=== PATIENT | male | born 1960 | race American Indian/Alaskan Native ===

== ENCOUNTER 2020-02-25 13:59 | Emergency (ER) | payer MEDICARE ==
[2020-02-25 14:07] VITALS: BP 144/81
[2020-02-25] MEDS ORDERED: SODIUM CHLORIDE 0.9% 1000 ML 1,000 ML IV ONE (14:32)
[2020-02-25] MEDS ORDERED: ACETAMINOPHEN 325 MG TAB PO ONE (14:32)
[2020-02-25] MEDS ORDERED: METOCLOPRAMIDE 10 MG/2 ML INJ IV ONE (14:32)
[2020-02-25] MEDS ORDERED: dexAMETHasone 4 MG/ML VIAL IV ONE (14:32)
[2020-02-25] MEDS ORDERED: diphenhydrAMINE 50 MG/ML VIAL IV ONE (14:32)
--- NOTE | 2020-02-25 14:39 | Emergency Department Report ---
ED Headache HPI - General Chief Complaint: Headache Stated Complaint: SEVERE HEADACHE Time Seen by Provider: 02/25/20 14:23 - History of Present Illness Initial Comments: Patient is a 60-year-old male who presents emergency room with complaints of a frontal headache that began yesterday. He describes the pain as an aching. He has associated nausea and one episode of vomiting. He states that he does not usually have headaches but occasionally when he gets a mild headache he takes ibuprofen and it resolves. He states he tried to take ibuprofen last night and this morning without much relief. He denies any diarrhea, fever, sore throat, cough, abdominal pain, chest pain, shortness of breath, vision changes, numbness, weakness, speech or gait disturbance. He has a past medical history of hypertension and hyperlipidemia. He denies any allergies to medications. Allergies/Adverse Reactions: Allergies No Known Allergies Allergy (Unverified 02/25/20 14:06) Home Medications: Ambulatory Orders Butalb/Acetaminophen/Caffeine [Fioricet 50-300-40 mg CAP] 1 cap PO Q8HR PRN #10 cap 02/25/20 Ondansetron HCl [Zofran] 4 mg PO Q8HR PRN #10 tablet 02/25/20 ED Review of Systems ROS: Stated complaint: SEVERE HEADACHE Other details as noted in HPI Comment: All other systems reviewed and negative ED Past Medical Hx - Past Medical History Previous Medical History?: Yes Hx Hypertension: Yes - Social History Smoking Status: Never Smoker Substance Use Type: None - Medications Home Medications: Home Medications Medication Instructions Recorded Confirmed Last Taken Type Butalb/Acetaminophen/Caffeine 1 cap PO Q8HR PRN #10 cap 02/25/20 Unknown Rx [Fioricet 50-300-40 mg CAP] Ondansetron HCl [Zofran] 4 mg PO Q8HR PRN #10 tablet 02/25/20 Unknown Rx ED Physical Exam - General Limitations: No Limitations General appearance: alert, in no apparent distress - Head Head exam: Present: atraumatic, normocephalic - Eye Eye exam: Present: normal appearance, PERRL, EOMI - ENT ENT exam: Present: mucous membranes moist - Neck Neck exam: Present: normal inspection, full ROM. Absent: tenderness, meningismus - Respiratory Respiratory exam: Present: normal lung sounds bilaterally. Absent: respiratory distress, wheezes, rales, rhonchi, stridor, chest wall tenderness, accessory muscle use, decreased breath sounds, prolonged expiratory - Cardiovascular Cardiovascular Exam: Present: regular rate, normal rhythm, normal heart sounds. Absent: systolic murmur, diastolic murmur, rubs, gallop - Neurological Exam Neurological exam: Present: alert, oriented X3, CN II-XII intact, normal gait, other (normal finger to nose, normal heel to benjamin, 5/5 strength in the BUE/BLE, sensation intact throughout, no focal neuro deficit). Absent: motor sensory deficit - Psychiatric Psychiatric exam: Present: normal affect, normal mood - Skin Skin exam: Present: warm, dry, intact ED Course Vital Signs 02/25/20 14:06 Temperature 99 F Pulse Rate 82 Respiratory 18 Rate Blood Pressure 144/81 O2 Sat by Pulse 97 Oximetry ED Medical Decision Making - Lab Data Result diagrams: 02/25/20 15:03 02/25/20 15:03 Lab Results 02/25/20 02/25/20 Range/Units 15:03 15:03 WBC 8.2 (4.5-11.0) K/mm3 RBC 5.11 H (3.65-5.03) M/mm3 Hgb 15.5 H (11.8-15.2) gm/dl Hct 45.7 H (35.5-45.6) % MCV 90 (84-94) fl MCH 30 (28-32) pg MCHC 34 (32-34) % RDW 13.7 (13.2-15.2) % Plt Count 267 (140-440) K/mm3 Lymph % (Auto) 24.4 (13.4-35.0) % [place]undy % (Auto) 8.2 H (0.0-7.3) % Eos % (Auto) 1.6 (0.0-4.3) % Baso % (Auto) 0.6 (0.0-1.8) % Lymph # 2.0 (1.2-5.4) K/mm3 [place]undy # 0.7 (0.0-0.8) K/mm3 Eos # 0.1 (0.0-0.4) K/mm3 Baso # 0.0 (0.0-0.1) K/mm3 Seg Neutrophils % 65.2 (40.0-70.0) % Seg Neutrophils # 5.4 (1.8-7.7) K/mm3 Sodium 142 (137-145) mmol/L Potassium 3.6 (3.6-5.0) mmol/L Chloride 101.2 (98-107) mmol/L Carbon Dioxide 28 (22-30) mmol/L Anion Gap 16 mmol/L BUN 14 (9-20) mg/dL Creatinine 1.2 (0.8-1.5) mg/dL Estimated GFR > 60 ml/min BUN/Creatinine Ratio 12 % Glucose 90 (75-100) mg/dL Calcium 9.9 (8.4-10.2) mg/dL Magnesium 2.20 (1.7-2.3) mg/dL Total Bilirubin 0.40 (0.1-1.2) mg/dL AST 24 (5-40) units/L ALT 24 (7-56) units/L Alkaline Phosphatase 87 (35-129) units/L Total Creatine Kinase 278 H (55-170) units/L Total Protein 7.4 (6.3-8.2) g/dL Albumin 4.6 (3.9-5) g/dL Albumin/Globulin Ratio 1.6 % - Radiology Data Radiology results: report reviewed CT HEAD WITHOUT CONTRAST INDICATION / CLINICAL INFORMATION: headache. TECHNIQUE: All CT scans at this location are performed using CT dose reduction for ALARA by means of automated exposure control. COMPARISON: None available. FINDINGS: HEMORRHAGE: No evidence of intracranial hemorrhage or extra-axial fluid collection. EXTRA-AXIAL SPACES: Cortical sulci, sylvian fissures and basilar cisterns have an unremarkable appearance. VENTRICULAR SYSTEM: The ventricular system is of normal size and configuration. CEREBRAL PARENCHYMA: No areas of abnormal brain parenchymal attenuation are identified. There is no indication of recent infarction. MIDLINE SHIFT OR HERNIATION: There is no mass effect. CEREBELLUM / BRAINSTEM: Brainstem and cerebellum have an unremarkable appearance. INTRACRANIAL VESSELS:No abnormalities are identified on this noncontrast head CT. ORBITS: visualized portions of the orbits have an unremarkable appearance. SOFT TISSUES of HEAD: No significant abnormality. CALVARIUM: Evaluation of bone windows reveals no abnormalities. PARANASAL SINUSES / MASTOID AIR CELLS: Paranasal sinuses are free from inflammatory mucosal disease. Mastoid air cells are normally pneumatized. ADDITIONAL FINDINGS: None. IMPRESSION: 1. No abnormality on head CT without contrast. Signer Name: Brady Mancini MD Signed: 02/25/2020 3:06 PM Workstation Name: [id number] Transcribed By: Dictated By: Brady Mancini MD Electronically Authenticated By: Brady Mancini MD Signed Date/Time: 02/25/20 1506 DD/ 1503 TD/TT: - Medical Decision Making Patient is a 60-year-old male who presents emergency room with complaints of a frontal headache that began yesterday. He describes the pain as an aching. He has associated nausea and one episode of vomiting. He states that he does not usually have headaches but occasionally when he gets a mild headache he takes ibuprofen and it resolves. He states he tried to take ibuprofen last night and this morning without much relief. He denies any diarrhea, fever, sore throat, cough, abdominal pain, chest pain, shortness of breath, vision changes, numbness, weakness, speech or gait disturbance. He has a past medical history of hypertension and hyperlipidemia. He denies any allergies to medications. Vitals are stable. No abnormality on physical examination, no neurological deficits. CT head: 1. No abnormality on head CT without contrast. Labs are stable. Patient given medications and headache improved and patient was resting comfortably in exam room. Patient was able to tolerate p.o. intake. Patient given prescription for Fioricet and Zofran. Advised patient Please take medication as prescribed. Increase your fluid intake. Follow-up with your primary care doctor. Return to the emergency room for any new or worsening symptoms including but not limited to worsening headache, vision changes, numbness, weakness, difficulty with speech or walking, etc. - Differential Diagnosis Migraine, tension headache, cluster headache, sinusitis, ICH, CVA, SDH Critical care attestation.: If time is entered above; I have spent that time in minutes in the direct care of this critically ill patient, excluding procedure time. ED Disposition Clinical Impression: Headache Qualifiers: Headache type: unspecified Headache chronicity pattern: acute headache Intractability: not intractable Qualified Code(s): R51 - Headache Disposition: DC-01 TO HOME OR SELFCARE Is pt being admited?: No Does the pt Need Aspirin: No Condition: Stable Instructions: Acute Headache (ED) Additional Instructions: Please take medication as prescribed. Increase your fluid intake. Follow-up with your primary care doctor. Return to the emergency room for any new or worsening symptoms including but not limited to worsening headache, vision changes, numbness, weakness, difficulty with speech or walking, etc. Prescriptions: Butalb/Acetaminophen/Caffeine [Fioricet 50-300-40 mg CAP] 1 cap PO Q8HR PRN #10 cap PRN Reason: Headache Ondansetron HCl [Zofran] 4 mg PO Q8HR PRN #10 tablet PRN Reason: Nausea And Vomiting Referrals: PRIMARY CARE, [Primary Care Provider] - 2-3 Days Time of Disposition: 17:55 Print Language: VENEZUELAN
--- NOTE | 2020-02-25 15:10 | Cat Scan Report ---
CT HEAD WITHOUT CONTRAST INDICATION / CLINICAL INFORMATION: headache. TECHNIQUE: All CT scans at this location are performed using CT dose reduction for ALARA by means of automated e xposure control. COMPARISON: None available. FINDINGS: HEMORRHAGE: No evidence of intracranial hemorrhage or extra-axial fluid collection. EXTRA-AXIAL SPACES: Cortical sulci, sylvian fissures and basilar cisterns have an unremarkable appear ance. VENTRICULAR SYSTEM: The ventricular system is of normal size and configuration. CEREBRAL PARENCHYMA: No areas of abnormal brain parenchymal attenuation are identified. There is no i ndication of recent infarction. MIDLINE SHIFT OR HERNIATION: There is no mass effect. CEREBELLUM / BRAINSTEM: Brainstem and cerebellum have an unremarkable appearance. INTRACRANIAL VESSELS:No abnormalities are identified on this noncontrast head CT. ORBITS: visualized portions of the orbits have an unremarkable appearance. SOFT TISSUES of HEAD: No significant abnormality. CALVARIUM: Evaluation of bone windows reveals no abnormalities. PARANASAL SINUSES / MASTOID AIR CELLS: Paranasal sinuses are free from inflammatory mucosal disease. Mastoid air cells are normally pneumatized. ADDITIONAL FINDINGS: None. IMPRESSION: 1. No abnormality on head CT without contrast. Signer Name: Brady Mancini MD Signed: 02/25/2020 3:06 PM Workstation Name: [id number]
[2020-02-25 15:45] LABS: Basophils % (Auto) 0.6 % (0.0-1.8); Eosinophils # (Auto) 0.1 K/mm3 (0.0-0.4); Eosinophils % (Auto) 1.6 % (0.0-4.3); Hematocrit 45.7 % (35.5-45.6); Hemoglobin 15.5 gm/dl (11.8-15.2); Lymphocytes % (Auto) 24.4 % (13.4-35.0); Mean Corpuscular HGB Conc 34 % (32-34); Mean Corpuscular Volume 90 fl (84-94); Monocytes # (Auto) 0.7 K/mm3 (0.0-0.8); Monocytes % (Auto) 8.2 % (0.0-7.3); Platelet Count 267 K/mm3 (140-440); Red Blood Count 5.11 M/mm3 (3.65-5.03); Red Cell Distribution Width 13.7 % (13.2-15.2)
[2020-02-25 16:07] LABS: Alanine Aminotransferase 24 units/L (7-56); Albumin 4.6 g/dL (3.9-5); BUN/Creatinine Ratio 12; Blood Urea Nitrogen 14 mg/dL (9-20); Calcium 9.9 mg/dL (8.4-10.2); Hemolysis Index 18
[2020-02-25] MEDS ORDERED: KETOROLAC 30 MG/1 ML INJ IV ONE (16:45)
== END 2020-02-25 18:48 | disposition home or self-care (01) ==
LOC: ED 13:59
DX: R51 Headache (principal); R11.2 Nausea with vomiting, unspecified; I10 Essential (primary) hypertension
CPT/HCPCS: 36415; 70450; 80053; 82550; 83735; 85025; 96361; 96374; 96375; 99284; J1100; J1200; J1885; J2765; J7030

== ENCOUNTER 2021-10-08 12:21 | Emergency (ER) | payer MEDICARE ==
[2021-10-08] MEDS ORDERED: KETOROLAC 10 MG TAB PO ONE (13:25)
[2021-10-08] MEDS ORDERED: predniSONE 20 MG TAB PO ONE (13:25)
[2021-10-08] MEDS ORDERED: HYDROcodone/ACETAMINOPHEN 5-325 MG TAB PO ONE (13:25)
--- NOTE | 2021-10-08 13:31 | Emergency Department Report ---
ED Back Pain/Injury HPI - General Chief Complaint: Back Pain/Injury Stated Complaint: HIP AND BACK PAIN Source: patient Limitations: No Limitations - History of Present Illness Initial Comments: Patient is a 62-year-old male with past medical history notable chronic back pain who sees a neurosurgeon presents emergency department complaint of left- sided hip and back pain that is atraumatic. He denies having any warning symptoms of fever. He denies any numbness tingling or weakness. He denies any saddle anesthesia. Patient denies any bowel or bladder incontinence. He states he has been able to ambulate. He states that he takes gabapentin currently for pain. He also denies any pain with urination. MD Complaint: back pain - Related Data Previous Rx's Medication Instructions Recorded Last Taken Type Butalb/Acetaminophen/Caffeine 1 cap PO Q8HR PRN #10 cap 02/25/20 Unknown Rx [Fioricet 50-300-40 mg CAP] Ondansetron HCl [Zofran] 4 mg PO Q8HR PRN #10 tablet 02/25/20 Unknown Rx HYDROcodone/APAP 5-325 [[place] 1 each PO Q6HR PRN 3 Days #12 10/08/21 Unknown Rx 5/325] tablet predniSONE [Deltasone] 40 mg PO QDAY 4 Days #8 tab 10/08/21 Unknown Rx Allergies Allergy/AdvReac Type Severity Reaction Status Date / Time No Known Allergies Allergy Unverified 02/25/20 14:06 ED Review of Systems ROS: Stated complaint: HIP AND BACK PAIN Other details as noted in HPI Constitutional: denies: chills, fever Eyes: denies: eye pain ENT: denies: throat pain Respiratory: denies: cough, orthopnea Cardiovascular: denies: dyspnea on exertion Endocrine: no symptoms reported Gastrointestinal: denies: abdominal pain, nausea, vomiting Genitourinary: denies: dysuria Musculoskeletal: back pain Skin: denies: rash Neurological: denies: headache, weakness Psychiatric: denies: anxiety, depression Hematological/Lymphatic: denies: easy bleeding ED Past Medical Hx - Past Medical History Hx Hypertension: Yes - Social History Smoking Status: Never Smoker Substance Use Type: None - Medications Home Medications: Home Medications Medication Instructions Recorded Confirmed Last Taken Type Butalb/Acetaminophen/Caffeine 1 cap PO Q8HR PRN #10 cap 02/25/20 Unknown Rx [Fioricet 50-300-40 mg CAP] Ondansetron HCl [Zofran] 4 mg PO Q8HR PRN #10 tablet 02/25/20 Unknown Rx HYDROcodone/APAP 5-325 [[place] 1 each PO Q6HR PRN 3 Days #12 10/08/21 Unknown Rx 5/325] tablet predniSONE [Deltasone] 40 mg PO QDAY 4 Days #8 tab 10/08/21 Unknown Rx ED Physical Exam - General Limitations: No Limitations General appearance: alert, in no apparent distress - Head Head exam: Present: atraumatic, normocephalic - Eye Eye exam: Present: normal appearance - ENT ENT exam: Present: mucous membranes moist - Neck Neck exam: Present: normal inspection - Respiratory Respiratory exam: Present: normal lung sounds bilaterally. Absent: respiratory distress - Cardiovascular Cardiovascular Exam: Present: regular rate, normal rhythm. Absent: systolic murmur, diastolic murmur, rubs, gallop - GI/Abdominal GI/Abdominal exam: Present: soft, normal bowel sounds - Rectal Rectal exam: Present: deferred - Back Exam Back exam: Present: tenderness (l spine) - Neurological Exam Neurological exam: Present: alert, oriented X3, normal gait. Absent: motor sensory deficit - Psychiatric Psychiatric exam: Present: normal affect, normal mood - Skin Skin exam: Present: warm, dry, intact, normal color. Absent: rash ED Course Vital Signs 10/08/21 12:26 Temperature 98.4 F Pulse Rate 72 Respiratory 18 Rate Blood Pressure 135/69 [Right] O2 Sat by Pulse 98 Oximetry ED Medical Decision Making - Medical Decision Making This is a 61-year-old male here with complaint of back pain. Patient has had chronic back pain for years and sees a neurosurgeon. He denies any warning symptoms of his back pain. Given this I do not think there is any new utility in obtaining imaging on today. Patient has a normal neurological exam. Plan to be treat patient's pain and to give 3 days of pain medicine and dose of steroids patient is to follow-up with primary care as well as his neurosurgeon. Critical care attestation.: If time is entered above; I have spent that time in minutes in the direct care of this critically ill patient, excluding procedure time. ED Disposition Clinical Impression: Sciatica Disposition: HOME / SELF CARE / HOMELESS Is pt being admited?: No Does the pt Need Aspirin: No Condition: Stable Instructions: Sciatica Prescriptions: predniSONE [Deltasone] 40 mg PO QDAY 4 Days #8 tab HYDROcodone/APAP 5-325 [[place] 5/325] 1 each PO Q6HR PRN 3 Days #12 tablet PRN Reason: Pain Referrals: DELMIS VIVEROS II, MD [Staff Physician] - 3-5 Days Time of Disposition: 13:32
[2021-10-08 14:16] VITALS: BP 132/74
== END 2021-10-08 14:16 | disposition home or self-care (01) ==
LOC: ED 12:21
DX: M54.30 Sciatica, unspecified side (principal); I10 Essential (primary) hypertension
CPT/HCPCS: 99282; J7512

== ENCOUNTER 2022-04-06 15:12 | Emergency (ER) | payer MEDICARE ==
[2022-04-06 17:16] VITALS: BP 145/80
[2022-04-06] MEDS ORDERED: dexAMETHasone 20 MG/5 ML VIAL IM ONE (19:46)
[2022-04-06] MEDS ORDERED: HYDROmorphone 1 MG/1 ML INJ IM ONE (19:46)
[2022-04-06] MEDS ORDERED: ONDANSETRON 4 MG ODT TAB PO ONE (19:46)
--- NOTE | 2022-04-06 20:29 | Emergency Department Report ---
ED Back Pain/Injury HPI - General Chief Complaint: Extremity Injury, Lower Stated Complaint: BACK PAIN/VOMTING Source: patient Limitations: No Limitations - History of Present Illness Initial Comments: Patient is a 62-year-old -[place] male with a history of hypertension and chronic low back pain and sciatica presents to the ED with complaint of acute exacerbation of his chronic low back pain that radiates to the right leg persistently for the last 2 days after heavy lifting. Patient also complains of headache and nausea and vomiting. Patient states that he has not been to keep anything down including his medications due to persistent pain and nausea and vomiting. Patient denies fall, traumatic injury, dizziness, syncope, chest pain or shortness of breath, abdominal pain, diarrhea, fever, chills, cough, change in vision, bilateral lower extremity weakness, urinary or bowel incontinence and saddle paresthesia. MD Complaint: back pain (Low back pain radiating to the right leg), other (Nausea and vomiting, headache, chronic sciatica flareup) -: Sudden, days(s) (2) Similar Symptoms Previously: Yes Place: home Radiation: right leg Severity: severe Severity scale (0 -10): 7 Quality: sharp, aching Consistency: constant Improves With: none Worsens With: movement, walking Context: while lifting, turning/twisting Associated Symptoms: denies other symptoms, difficulty walking. denies: confusion, weakness, chest pain, numbness, cough, difficulty urinating, diaphoresis, incontinence, constipation, headaches, abdominal pain, nausea/vomiting, rash, seizure, shortness of breath, syncope, other - Related Data Previous Rx's Medication Instructions Recorded Last Taken Type ondansetron HCL [Zofran] 4 mg PO Q8HR PRN #10 tablet 02/25/20 Unknown Rx HYDROcodone/APAP 5-325 [[place] 1 each PO Q6HR PRN 3 Days #12 10/08/21 Unknown Rx 5/325] tablet Butalb/Acetaminophen/Caffeine 1 - 2 cap PO Q8HR PRN #10 cap 04/06/22 Unknown Rx [Fioricet 50-300-40 mg CAP] Naproxen 500 mg PO Q12H PRN #24 tab 04/06/22 Unknown Rx predniSONE [Deltasone] 60 mg PO QDAY #15 tab 04/06/22 Unknown Rx tiZANidine [Zanaflex 4mg TAB] 4 mg PO Q8H #21 tab 04/06/22 Unknown Rx traMADoL [Ultram] 50 mg PO Q6HR PRN #10 tablet 04/06/22 Unknown Rx Allergies Allergy/AdvReac Type Severity Reaction Status Date / Time No Known Allergies Allergy Unverified 02/25/20 14:06 ED Review of Systems ROS: Stated complaint: BACK PAIN/VOMTING Other details as noted in HPI Constitutional: denies: chills, fever Eyes: denies: eye pain, eye discharge, vision change ENT: denies: ear pain, throat pain Respiratory: denies: cough, shortness of breath, wheezing Cardiovascular: denies: chest pain, palpitations Endocrine: no symptoms reported Gastrointestinal: nausea, vomiting. denies: abdominal pain, diarrhea Genitourinary: denies: urgency, dysuria Musculoskeletal: back pain (Low back pain radiating to the right leg), arthralgia (Right leg pain from lower back), myalgia. denies: joint swelling Skin: denies: rash, lesions Neurological: headache. denies: weakness, paresthesias Psychiatric: denies: anxiety, depression Hematological/Lymphatic: denies: easy bleeding, easy bruising ED Past Medical Hx - Past Medical History Hx Hypertension: Yes Additional medical history: Chronic low back pain with right-sided sciatica - Social History Smoking Status: Never Smoker Substance Use Type: None - Medications Home Medications: Home Medications Medication Instructions Recorded Confirmed Last Taken Type ondansetron HCL [Zofran] 4 mg PO Q8HR PRN #10 tablet 02/25/20 Unknown Rx HYDROcodone/APAP 5-325 [[place] 1 each PO Q6HR PRN 3 Days #12 10/08/21 Unknown Rx 5/325] tablet Butalb/Acetaminophen/Caffeine 1 - 2 cap PO Q8HR PRN #10 cap 04/06/22 Unknown Rx [Fioricet 50-300-40 mg CAP] Naproxen 500 mg PO Q12H PRN #24 tab 04/06/22 Unknown Rx predniSONE [Deltasone] 60 mg PO QDAY #15 tab 04/06/22 Unknown Rx tiZANidine [Zanaflex 4mg TAB] 4 mg PO Q8H #21 tab 04/06/22 Unknown Rx traMADoL [Ultram] 50 mg PO Q6HR PRN #10 tablet 06/09/22 Unknown Rx ED Physical Exam - General Limitations: No Limitations General appearance: alert, in no apparent distress - Head Head exam: Present: atraumatic, normocephalic, normal inspection - Eye Eye exam: Present: normal appearance, PERRL, EOMI Pupils: Present: normal accommodation - ENT ENT exam: Present: normal exam, normal orophraynx, mucous membranes moist, TM's normal bilaterally, normal external ear exam - Neck Neck exam: Present: normal inspection, full ROM. Absent: tenderness - Respiratory Respiratory exam: Present: normal lung sounds bilaterally. Absent: respiratory distress, wheezes, rales, rhonchi, chest wall tenderness, accessory muscle use, decreased breath sounds, prolonged expiratory - Cardiovascular Cardiovascular Exam: Present: regular rate, normal rhythm, normal heart sounds. Absent: systolic murmur, diastolic murmur, rubs, gallop - GI/Abdominal GI/Abdominal exam: Present: soft, normal bowel sounds. Absent: tenderness, guarding, rebound, hyperactive bowel sounds, hypoactive bowel sounds, organomegaly, mass - Extremities Exam Extremities exam: Present: normal inspection, full ROM, normal capillary refill. Absent: tenderness, pedal edema, joint swelling, calf tenderness - Back Exam Back exam: Present: normal inspection, full ROM, tenderness (Palpable lumbosacral paraspinal musculoskeletal tenderness), muscle spasm, paraspinal tenderness. Absent: CVA tenderness (L), vertebral tenderness - Neurological Exam Neurological exam: Present: alert, oriented X3, CN II-XII intact, normal gait, reflexes normal - Psychiatric Psychiatric exam: Present: normal affect, normal mood - Skin Skin exam: Present: warm, dry, intact, normal color. Absent: rash ED Course Vital Signs 04/06/22 04/06/22 17:12 20:10 Temperature 98.3 F Pulse Rate 74 Respiratory 16 18 Rate Blood Pressure 145/80 O2 Sat by Pulse 96 Oximetry ED Medical Decision Making - Medical Decision Making This is a 62-year-old -[place] male with a history of hypertension and chronic low back pain and sciatica presents to the ED with complaint of acute exacerbation of his chronic low back pain that radiates to the right leg persistently for the last 2 days after heavy lifting. Patient also complains of headache and nausea and vomiting. Patient states that he has not been to keep anything down including his medications due to persistent pain and nausea and vomiting. In the ED, patient is alert and oriented x3 and is not in any distress. Patient however appears to be in pain. Patient was treated for pain in the ED and also given antiemetics. Based on the history and physical exam findings, the patient symptoms are likely due to low back pain with sciatica. On reevaluation, patient passed oral fluid challenge in the ED. Patient will discharge home on pain medications and antiemetics and advised to follow-up with his primary care physician in 3 to 5 days for reevaluation or return to the ED immediately if symptoms get worse. - Differential Diagnosis Chronic sciatica; chronic back pain; muscle spasm of back; muscle strain of Critical care attestation.: If time is entered above; I have spent that time in minutes in the direct care of this critically ill patient, excluding procedure time. ED Disposition Clinical Impression: Spasm of muscle of lower back, Strain of muscle, fascia and tendon of lower back, initial encounter, Nausea and vomiting in adult patient, Tension headache Chronic low back pain with right-sided sciatica Qualifiers: Back pain laterality: right Qualified Code(s): M54.41 - Lumbago with sciatica, right side; G89.29 - Other chronic pain Disposition: 01 HOME / SELF CARE / HOMELESS Is pt being admited?: No Does the pt Need Aspirin: No Condition: Stable Instructions: Muscle Cramps and Spasms, [id number], Muscle Strain, [id number], Lumbosacral Strain, General Headache Without Cause, Nausea and Vomiting, Adult, [id number], Sciatica, [id number], Chronic Back Pain, [id number] Additional Instructions: Your symptoms are likely due to muscle spasm and muscle strain of your low back as well as exacerbation of chronic low back pain with right-sided sciatica which is due to nerve impingement in your lower back. Therefore take medications with food, drink plenty of fluids, follow-up with your primary care physician in 3 to 5 days for reevaluation. Return to the ED immediately if symptoms get worse. Prescriptions: predniSONE [Deltasone] 60 mg PO QDAY #15 tab Butalb/Acetaminophen/Caffeine [Fioricet 50-300-40 mg CAP] 1 - 2 cap PO Q8HR PRN #10 cap PRN Reason: Headache Naproxen 500 mg PO Q12H PRN #24 tab PRN Reason: Pain , Severe (7-10) traMADoL [Ultram] 50 mg PO Q6HR PRN #10 tablet PRN Reason: Pain tiZANidine [Zanaflex 4mg TAB] 4 mg PO Q8H #21 tab Referrals: [facility] [Provider Group] - 3-5 Days Time of Disposition: 20:34 Print Language: SLOVENIAN
== END 2022-04-06 21:23 | disposition home or self-care (01) ==
LOC: ED 15:12
DX: S39.012A Strain of muscle, fascia and tendon of lower back, initial encounter (principal); G89.29 Other chronic pain; M62.830 Muscle spasm of back; M54.41 Lumbago with sciatica, right side; X58.XXXA Exposure to other specified factors, initial encounter; Y93.89 Activity, other specified; Y92.89 Other specified places as the place of occurrence of the external cause; Y99.8 Other external cause status; I10 Essential (primary) hypertension
CPT/HCPCS: 96372; 99282; J1100; J1170; J3490; Q0162